=== PATIENT | male | born 1975 | race Two or more races ===

== ENCOUNTER 2017-05-06 20:13 | Emergency (ER) | payer OTHER ==
[2017-05-06 22:00] VITALS: BP 147/95
== END 2017-05-07 00:04 | disposition home or self-care (01) ==
LOC: ED 20:13
DX: S81.012A Laceration without foreign body, left knee, initial encounter (principal); R03.0 Elevated blood-pressure reading, without diagnosis of hypertension; W01.198A Fall on same level from slipping, tripping and stumbling with subsequent striking against other object, initial encounter; Y93.89 Activity, other specified; Y99.8 Other external cause status; Y92.89 Other specified places as the place of occurrence of the external cause
CPT/HCPCS: 90715; J2001